=== PATIENT | female | born 1940 | race Native Hawaiian/Other Pacific Islander ===

== ENCOUNTER 2016-12-04 07:38 | Day surgery (SDC) | payer OTHER | END 2016-12-04 10:50 | disposition home or self-care (01) | LOC: OR 07:38 | PROC: 08RJ3JZ Replacement of Right Lens with Synthetic Substitute, Percutaneous Approach (ICD-10-PCS; principal; 2016-12-04) | PROC: 089230Z Drainage of Right Anterior Chamber with Drainage Device, Percutaneous Approach (ICD-10-PCS; 2016-12-04) | DX: H25.811 Combined forms of age-related cataract, right eye (principal); H40.1112 Primary open-angle glaucoma, right eye, moderate stage | CPT/HCPCS: 0191T; 66984; V2632 ==